=== PATIENT | female | born 1980 | race Hispanic/Latino ===

== ENCOUNTER 2018-07-21 11:25 | Emergency (ER) | payer SELFPAY ==
[~2018-07-21] VITALS: Ht 165.1 cm; Wt 70.5 kg
[2018-07-21] MEDS ORDERED: KEPPRA XR500 MG PO (12:26)
[2018-07-21] MEDS ORDERED: CARBATROL300 MG PO (12:29)
[2018-07-21 12:55] VITALS: BP 136/70
== END 2018-07-21 12:55 | disposition home or self-care (01) | DRG 101 ==
LOC: ED 11:25
DX: G40.909 Epilepsy, unspecified, not intractable, without status epilepticus (principal); S00.83XA Contusion of other part of head, initial encounter; S00.33XA Contusion of nose, initial encounter; S00.81XA Abrasion of other part of head, initial encounter; S00.511A Abrasion of lip, initial encounter; S80.212A Abrasion, left knee, initial encounter; S80.211A Abrasion, right knee, initial encounter; Y92.89 Other specified places as the place of occurrence of the external cause